=== PATIENT | female | born 1960 | race Hispanic/Latino ===

== ENCOUNTER 2022-07-21 21:37 | Emergency (ER) | payer OTHER ==
[2022-07-21] MEDS ORDERED: ONDANSETRON 4MG INJ ONE (22:08)
[2022-07-21 22:13] LABS: HEMATOCRIT 39.3 % (36-48); MEAN CORPUSCULAR HEMOGLOBIN 28.8 pg (27.0-33.0); MEAN CORPUSCULAR HGB CONC 34.9 g/dL (32.0-36.0); MEAN CORPUSCULAR VOLUME 82.7 fL (79-99); PLATELET COUNT (AUTO) 288 K/uL (130-400); RED BLOOD CELL COUNT(AUTO) 4.75 MIL/uL (4.00-5.50)
[2022-07-21 22:23] LABS: POTASSIUM 3.3 mmol/L (3.5-5.1)
[2022-07-21 22:27] LABS: TOTAL PROTEIN, SERUM 8.2 g/dL (6.0-8.3)
[2022-07-21] MEDS ORDERED: ONDANSETRON 4MG INJ IVP ONE (22:30)
[2022-07-21 22:45] LABS: BASOPHILS % (AUTO) 0.5 % (0.0-5.0); EOSINOPHILS % (AUTO) 0.2 % (0.0-8.0); LYMPHOCYTES % (AUTO) 12.2 % (21.0-51.0); MONOCYTES % (AUTO) 5.4 % (3.0-13.0); NEUTROPHILS % (AUTO) 81.2 % (40.0-77.0)
[2022-07-21] MEDS ORDERED: 0.9%NACL 1000ML 1,000 ML IV ONE (23:00)
[2022-07-21] MEDS ORDERED: MECLIZINE HCL 25 MG TABLET PO ONE (23:00)
[2022-07-21] MEDS ORDERED: MAGNESIUM 2GM PREMIX 50ML 50 ML IV ONE (23:30)
[2022-07-22] MEDS ORDERED: MECL-160 PO (02:41)
[2022-07-22] MEDS ORDERED: ONDA4TAB10 PO (02:41)
[2022-07-22] MEDS ORDERED: KCL 20 MEQ ERTAB PO ONE (03:00)
[2022-07-22 04:53] VITALS: BP 117/61
== END 2022-07-22 06:57 | disposition home or self-care (01) ==
LOC: EDH 21:37
DX: H81.10 Benign paroxysmal vertigo, unspecified ear (principal); E86.0 Dehydration; E87.6 Hypokalemia; E87.1 Hypo-osmolality and hyponatremia; E83.42 Hypomagnesemia; E11.9 Type 2 diabetes mellitus without complications; I10 Essential (primary) hypertension; Z86.73 Personal history of transient ischemic attack (TIA), and cerebral infarction without residual deficits; Z20.822 Contact with and (suspected) exposure to COVID-19
CPT/HCPCS: 99285; 96365; 70450; 87635; 96366; 96375; 83735; 84484; 80053; 83690; 85025; 83605; 36415; 93005; C9803; J3475; J7030; J2405 ×2